=== PATIENT | male | born 1970 | race Caucasian/White ===

== ENCOUNTER → 2018-01-27 | Outpatient (CLI) | payer OTHER ==
--- NOTE | 2018-01-27 15:20 | CT ---
EXAM DESCRIPTION: CTA Upper Extremity CLINICAL HISTORY: ARTERIAL EMBOLISM UPPER EXTREMITY COMPARISON: None. TECHNIQUE: Postcontrast CTA images of the right upper extremity are obtained with coronal and sagittal reconstructed images. Three-D reconstructed images of the arterial vasculature are obtained. This exam was performed according to our departmental dose-optimization program, which includes automated exposure control, adjustment of the mA and/or kV according to patient size and/or use of iterative reconstruction technique . FINDINGS: Mild aneurysmal dilatation of the ascending thoracic aorta measures 4.3 cm. No dissection. 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 Great vessels are otherwise unremarkable and patent. The right subclavian and axillary artery show no significant plaque or vessel narrowing. The brachial artery and branches are patent to the level of the distal humerus. The vessel tapers at the level of the distal humerus and is occluded at the level of the elbow. There is occlusion over an approximately 6 cm length. Reconstitution of partly opacified ulnar and radial arteries in the proximal forearm is seen secondary to collateral vessels. The radial and ulnar artery are difficult to visualize. Visualized solid organs in the abdomen are unremarkable. No pathologic lymphadenopathy of the chest. Visualized lungs show no acute findings. 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 Collateral vessels reconstitute the proximal right radial and ulnar arteries in the forearm. There is at least a 6 cm gap between the brachial artery occlusion and the reconstituted ulnar and radial arteries. Mild aneurysm of the descending thoracic aorta measures 4.3 cm. Other findings as described above. Electronically signed by: John Escobedo MD 01/27/2018 3:18 PM [employer] [employer] [employer]
== END ==
LOC: CT 13:43
PROVIDERS: ATTEND Surgery
DX: I74.2 Embolism and thrombosis of arteries of the upper extremities (principal); I71.4 Abdominal aortic aneurysm, without rupture